=== PATIENT | female | born 2000 | race Asian ===

== ENCOUNTER 2021-11-23 14:30 | Outpatient (CLI) | payer OTHER | END 2021-11-23 18:55 | disposition home or self-care (01) | LOC: RAD 14:30 | PROVIDERS: ATTEND Nurse Practitioner Family | DX: M54.50 Low back pain, unspecified (principal) ==

== ENCOUNTER 2021-11-26 13:14 | Outpatient (CLI) | payer OTHER | END 2021-11-26 19:55 | disposition home or self-care (01) | LOC: NM 13:14 | PROVIDERS: ATTEND Nurse Practitioner Family | DX: R10.11 Right upper quadrant pain (principal) | CPT/HCPCS: A9537 ==

== ENCOUNTER 2022-09-23 08:28 | Outpatient (CLI) | payer OTHER | END 2022-09-23 21:33 | disposition home or self-care (01) | LOC: MRI 08:28 | PROVIDERS: ATTEND Nurse Practitioner Family | DX: G44.52 New daily persistent headache (NDPH) (principal) ==